=== PATIENT | male | born 1975 | race Caucasian/White ===

== ENCOUNTER → 2020-02-26 | Outpatient (CLI) | payer OTHER | END | disposition home or self-care (01) | LOC: RAD 07:59 | DX: S62.011A Displaced fracture of distal pole of navicular [scaphoid] bone of right wrist, initial encounter for closed fracture (principal); X58.XXXA Exposure to other specified factors, initial encounter; Y93.89 Activity, other specified; Y92.148 Other place in prison as the place of occurrence of the external cause; Y99.8 Other external cause status ==

== ENCOUNTER 2020-06-22 05:25 | Day surgery (SDC) | payer OTHER ==
[~2020-06-22] VITALS: Ht 177.8 cm; Wt 94.0 kg
[2020-06-22 05:47] VITALS: BP 126/87
[2020-06-22] MEDS ORDERED: CHLORHEXIDINE 15 ML UDC ONE (05:50)
[2020-06-22] MEDS ORDERED: CHLORHEXIDINE 15 ML UDC MM ONE (06:00)
[2020-06-22] MEDS ORDERED: LACTATED RINGERS 1,000 ML IV SCH (06:00)
[2020-06-22] MEDS ORDERED: BUPIVACAINE/PF 0.5% ONE (06:27)
[2020-06-22] MEDS ORDERED: AMLO-150 PO (06:30)
[2020-06-22] MEDS ORDERED: DOXA2TAB9 PO (06:30)
[2020-06-22] MEDS ORDERED: DEXAMETHASONE 4 MG/ML, 5ML ONE (06:50)
[2020-06-22] MEDS ORDERED: PROPOFOL 10 MG/ML, 20ML ONE (06:59)
[2020-06-22] MEDS ORDERED: FENTANYL PF 250 MCG/5ML ONE (06:59)
[2020-06-22] MEDS ORDERED: CEFAZOLIN 1,000 MG ONE (06:59)
[2020-06-22] MEDS ORDERED: MIDAZOLAM 1 MG/ML, 2ML ONE (06:59)
[2020-06-22] MEDS ORDERED: LABETALOL 5MG/ML, 20ML IV PRN (07:00)
[2020-06-22] MEDS ORDERED: hydrALAzine 20 MG/ML, 1ML IV PRN (07:00)
[2020-06-22] MEDS ORDERED: OXYcodone 5 MG/5 ML ORAL.SOL UDC PO PRN (07:00)
[2020-06-22] MEDS ORDERED: ONDANSETRON 2MG/ML, 2ML IVPush PRN (07:00)
[2020-06-22] MEDS ORDERED: MEPERIDINE/PF 25MG/0.5ML IVPush PRN (07:00)
[2020-06-22] MEDS ORDERED: morphine SULFATE 10 MG/ML, 1ML IVPush PRN (07:00)
[2020-06-22] MEDS ORDERED: HYDROmorphone 1 MG/ML, 1ML INJ IVPush PRN (07:00)
[2020-06-22] MEDS ORDERED: ACETAMINOPHEN 325 MG TABLET PO PRN (07:00)
[2020-06-22] MEDS ORDERED: ACETAMINOPHEN 650 MG/20.3 ML UDC ONE (08:38)
[2020-06-22] MEDS ORDERED: FENTANYL PF 100 MCG/2ML ONE (08:38)
[2020-06-22] MEDS: FENTANYL PF 100 MCG/2ML IV PRN ×2 (08:40→08:54)
== END 2020-06-22 10:00 | disposition home or self-care (01) ==
LOC: OUT 05:25
PROVIDERS: ATTEND Orthopaedic Surgery
DX: S62.011A Displaced fracture of distal pole of navicular [scaphoid] bone of right wrist, initial encounter for closed fracture (principal); M65.321 Trigger finger, right index finger; M25.732 Osteophyte, left wrist; M19.90 Unspecified osteoarthritis, unspecified site; I12.9 Hypertensive chronic kidney disease with stage 1 through stage 4 chronic kidney disease, or unspecified chronic kidney disease; N18.9 Chronic kidney disease, unspecified; Z79.899 Other long term (current) drug therapy; Z87.891 Personal history of nicotine dependence; Z82.61 Family history of arthritis; W18.39XA Other fall on same level, initial encounter; Y93.89 Activity, other specified; Y92.148 Other place in prison as the place of occurrence of the external cause; Y99.8 Other external cause status
CPT/HCPCS: 20552; 25628; 73100; C1713; C1769; J0690; J1100; J2250; J2704; J3010; J7120; 76000

== ENCOUNTER → 2020-10-17 | Outpatient (CLI) | payer OTHER ==
[~2020-10-17] MED LIST: AMLO-150 PO; DOXA2TAB9 PO
== END | disposition home or self-care (01) ==
LOC: RAD 08:33
PROVIDERS: ATTEND Orthopaedic Surgery
DX: S62.011A Displaced fracture of distal pole of navicular [scaphoid] bone of right wrist, initial encounter for closed fracture (principal); X58.XXXA Exposure to other specified factors, initial encounter; Y93.89 Activity, other specified; Y92.89 Other specified places as the place of occurrence of the external cause; Y99.8 Other external cause status

== ENCOUNTER → 2021-02-08 | Outpatient (CLI) | payer OTHER | END | disposition home or self-care (01) | LOC: CFH 09:15 | PROVIDERS: ATTEND Family Medicine Adult Medicine | DX: N63.41 Unspecified lump in right breast, subareolar (principal); N64.59 Other signs and symptoms in breast; N62 Hypertrophy of breast | CPT/HCPCS: 76642; 77062; 77066; G0279 ==